=== PATIENT | male | born 1975 | race Caucasian/White ===

== ENCOUNTER 2020-10-04 07:45 | Inpatient (IN) | payer MEDICARE, SELFPAY ==
[2020-10-04] VITALS (33 sets, daily range): BP systolic 126–163; BP diastolic 12–102; PULSE 87–118; RESP 11–24; TEMP 36.1–37; O2SAT 97–100
--- NOTE | ~2020-10-04 | XR_ITS ---
EXAMINATION: XR chest 2V DATE: 10/04/2020 08:18 INDICATION: Midsternal chest pain TECHNIQUE: AP and lateral views of the chest are obtained. COMPARISON: None available FINDINGS: The lungs are free of acute opacities. There is no pleural effusion or pneumothorax. The ca rdiomediastinal silhouette is normal. The visualized bones and soft tissues are unremarkable. IMPRESSION: 1. No acute cardiopulmonary abnormality. Reviewed, dictated and finalized at location B.
--- NOTE | 2020-10-04 07:54 | ECG_ITS ---
Measurements Intervals [place] Rate: 102 P: 66 KS: 166 QRS: 64 QRSD: 154 T: 36 QT: 393 QTc: 513 Interpretive Statements SINUS TACHYCARDIA RIGHT BUNDLE BRANCH BLOCK BASELINE ARTIFACT- AVR, AVL, AVF ABNORMAL ECG Electronically Signed On 10-04-2020 8:30:32 CDT by Kahlil Malone D.O.
[2020-10-04] MEDS: LORazepam INJ (*CRX) 2 MG/ML VIAL 0.5 MG IV PUSH (08:06)
[2020-10-04 08:13] LABS: Basophils Percent Auto 0.2 % (0.2-1.2); Eosinophils Percent Auto 0.1 % (0-4.4); Hematocrit 47.8 % (42.0-52.0); Hemoglobin 16.9 g/dL (14.0-18.0); Immature Granulocyte Absolute 0.07 K/mm3 (0.00-0.031); Immature Granulocyte Percent A 0.5 % (0-0.5); Lymphocytes Absolute Auto 1.19 K/mm3 (0.9-3.2); Lymphocytes Percent Auto 8.6 % (18.3-44.2); Mean Corpuscular HGB Conc 35.4 g/dl (32-36); Mean Corpuscular Volume 87.5 fl (80-100); Mean Platelet Volume 9.5 fl (7.4-10.4); Monocytes Absolute Auto 0.4 K/mm3 (0.1-0.6); Monocytes Percent Auto 2.6 % (2.6-8.5); Neutrophils Absolute Auto 12.1 K/mm3 (1.3-6.7); Platelet Count Result 235 k/mm3 (150-375); Red Blood Count 5.46 M/mm3 (4.6-6.20); Red Cell Distribution Width 12.8 % (11.5-14.5); White Blood Count 13.8 K/mm3 (4.5-10.0)
[2020-10-04 08:23] LABS: Anion Gap 17 mmol/L (8-16); Blood Urea Nitrogen 29 mg/dL (9-20); Calcium 9.8 mg/dL (8.4-10.2); Carbon Dioxide 18 mmol/L (22-30); Chloride 98 mmol/L (98-107); Estimated CRCL calculation 96 ml/min; Estimated Glomerular Filt Rate > 60; Glucose 411 mg/dL (75-110); Potassium 3.7 mmol/L (3.4-5.0); Sodium 133 mmol/L (137-145)
--- NOTE | 2020-10-04 08:43 | ED.CHESTPAIN ---
HPI - Chest Pain General Chief Complaint: Chest Pain Stated Complaint: CP Time Seen by Provider: 10/04/20 07:46 History of Present Illness HPI narrative: Patient is a 44-year-old male who presents ER with chest pain. 11/14 in the center of his chest. Nonradiating. Describes it as an ache. Reports history of SD 10 years ago while in [place]. Reports he did not get a stent. He does not see a cut out stitcher. Reports he had similar pain last week. No nausea/vomiting/shortness of breath/sweating. No aggravating or alleviating factors. No real change in discomfort after receiving nitro by EMS. Patient also reports he is very anxious. Related Data Allergies Allergy/AdvReac Type Severity Reaction Status Date / Time No Known Allergies Allergy Verified 10/04/20 08:01 Review of Systems Review of Systems: All systems reviewed & are unremarkable except as noted in HPI and below Constitutional: Constitutional: Denies chills, Denies fever(s) and Denies weakness ENT: Denies nasal congestion and Denies sore throat Cardiovascular: Cardiovascular: Reports chest pain, Denies rapid heart rate and Denies radiating jaw, neck or arm pain Respiratory: Respiratory: Denies cough, Denies dyspnea and Denies wheezing Gastrointestinal: Gastrointestinal: Denies nausea and Denies vomiting Psychiatric: Psychiatric: Reports anxiety PMFSH Past Medical History Medical History (Updated 10/04/20 @ 11:42 by Mk Cervantes MD) Diabetes Hypertension Surgical History Surgical History (Updated 10/04/20 @ 08:46 by Eladio Weir MD) No pertinent past surgical history Family History Family History (Updated 10/04/20 @ 13:09 by ZAHRA Clemons) Father Melanoma Social History Social History Smoking packs per day: 0.5 Smoking cigarettes per day: 10.0 Years smoked: 30 Smoking pack-years: 15.00 Smoking status: Current every day smoker Tobacco type: cigarettes Substance use type: former substance user, heroin and IV drugs Gender identity (if verbalized by the patient): Male Spiritual care concerns: No Exam Narrative: Exam Narrative: GENERAL: Uncomfortable-appearing, well-nourished, and in no acute distress. HEAD: Normocephalic, atraumatic. EYES: PERRL and EOMI. ENT: Mucous membranes moist. CHEST: Clear to auscultation. No respiratory distress. HEART: Regular rate and rhythm. Normal peripheral pulses. ABDOMEN: Soft, nontender, nondistended. EXTREMITIES: Normal range of motion. No edema. SKIN: Warm, dry, no rash. NEURO: Alert and oriented x3. PSYCH: Normal mood and affect. Course Reevaluation(s) Reevaluation #1: Discussed with Jessica MACIAS. Will speak with Dr. Gray about emergent cath vs heparin infusion. Date: 10/04/20 Time: 08:48 Reevaluation #2: Dr. Gray at bedside. Will take to [facility]. Patient has had aspirin. Will give heparin 4000 units. Date: 10/04/20 Time: 09:03 Vital Signs Vital signs: Vital Signs Pulse Rate 100 10/04/20 07:45 Temperature 98.4 F 10/04/20 16:25 Pulse Rate 89 10/04/20 16:25 Respiratory Rate 15 10/04/20 16:25 Blood Pressure 129/77 10/04/20 16:25 Pulse Oximetry 99 10/04/20 16:25 MDM - Chest Pain Lab Data Result diagrams: 10/04/20 08:06 10/04/20 08:06 Labs: Lab Results 10/04/20 10/04/20 10/04/20 Range/Units 08:06 08:06 09:12 WBC 13.8 H (4.5-10.0) K/mm3 RBC 5.46 (4.6-6.20) M/mm3 Hgb 16.9 (14.0-18.0) g/dL Hct 47.8 (42.0-52.0) % MCV 87.5 (80-100) fl MCH 31.0 (26-34) pg MCHC 35.4 (32-36) g/dl RDW 12.8 (11.5-14.5) % Plt Count 235 (150-375) k/mm3 MPV 9.5 (7.4-10.4) fl Immature Gran % (Auto) 0.5 (0-0.5) % Neut % (Auto) 88.0 H (45.5-73.1) % Lymph % (Auto) 8.6 L (18.3-44.2) % [place] % (Auto) 2.6 (2.6-8.5) % Eos % (Auto) 0.1 (0-4.4) % Baso % (Auto) 0.2 (0.2-1.2) % Lymph # (Auto
[2020-10-04] MEDS: NITROGLYCERIN SL 0.4 MG TABLET SUBLINGUAL (08:46)
[2020-10-04] MEDS: HEPARIN SODIUM 5,000 UNITS/ML VIAL 4000 UNITS IV PUSH (09:04)
[2020-10-04 09:30] LABS: INR 0.9; Prothrombin Time 13.1 Seconds (11.1-14.7)
[2020-10-04 09:31] LABS: Partial Thromboplastin Time 26.6 SECONDS (22.3-36.8)
--- NOTE | 2020-10-04 10:08 | PM.CNCAR ---
Assessment and Plan Additional Plan 44-year-old man with: Acute chest pain which brought him to the hospital emergency room this morning. His electrocardiogram is abnormal as described above. Troponin level is elevated at 1. There is no reciprocal ST segment depression but working diagnosis must be acute ME/acute coronary syndrome in this situation an emergency angiogram is indicated and has been recommended. Despite his psychiatric issues he does appear to understand this conversation and is agreeable. Other medical problems include untreated schizophrenia, untreated diabetes, untreated hypertension. Will bring the patient for emergency coronary angiogram at this time and further recommendations will be forthcoming those results. Robbin Gray MD [facility] History of Present Illness History of Present Illness Consult date/time: 10/04/20 10:08 Consult reason: chest pain Reason For Visit: nstemi Narrative: This is a 44-year-old patient I am seeing in the emergency room as an inpatient consult requested by the ED staff because of chest pain, ECG abnormalities and elevated troponin. Patient has a stated history of previous myocardial infarction but is extremely poor historian the patient states that he lives at home alone and is disabled because of psychiatric issues and began to experience chest pain at this morning he describes it as a dull to sometimes burning like discomfort in the epigastrium and radiated into the upper substernal region. The discomfort was moderate at times more moderate to severe in intensity. He tried to get some relief at home by drinking coffee intake shower which was of no benefit and so eventually he came to the hospital for evaluation. In the emergency room he was found to be a agitated reporting symptoms given rather difficult history of this. His electrocardiogram demonstrates a sinus mechanism with right bundle branch block and some anterior precordial ST elevation but no reciprocal depression. Her troponin level was measured along with the lab data and was elevated at 1 and I was then summoned to the emergency room to see the patient. In the emergency room again he is still reporting mild to moderate chest discomfort he is a very difficult historian to be focused on the issues at hand. He is responsive but giving answers that are not relevant to the questions that are asked. I did question him about the history of previous myocardial infarction he states he was hospitalized in [place] about 10 years ago and was hospitalized because of social reasons and psychiatric reasons. He can't remember having any sort of cardiac evaluation. I did receive any history that a lobby to conclude that he infected had an infarction. In any event in this situation I am seeing the patient in consultation. He does have schizophrenia diabetes hypertension and states he takes not done of his medication for any of this. He has a previous history of illicit drug use with heroin apparently states has been free of that for a number of years. Not sure of her urine drug screen was done in the emergency room. In this situation I recommended to the patient up bringing him for emergency coronary angiogram he seems to understand this and is agreeable. Review of Systems Review of Systems: ROS unobtainable: Yes unobtainable due to mental status [facility] Past Medical History Medical History (Updated 10/04/20 @ 09:17 by Sofia Jimenez) Diabetes Hypertension Surgical History Surgical History (Updated 10/04/20 @ 08:46 by Eladio Weir MD) No pertinent past surgical history Social History Social History (Updated 10/04/20 @ 08:47 by Eladio Weir MD) Substance use type: former substance user, heroin and IV drugs Meds Home Medications and Allergies Allergies Allergy/AdvReac Type Severity Reaction Status Date / Time No Known Allergies Allergy Verified 10/04/20 08:01 Vital Signs Vital Signs - 24 h
--- NOTE | 2020-10-04 10:14 | WPDCARDPROC ---
Cardiac Cath Procedure Note Date of procedure:: 10/04/20 Performing physician:: Robbin Gray MD Indication:: chest pain/acute coronary syndrome Brief clinical history:: this is a 44-year-old man who was a very difficult historian because of psychiatric issues. He enters the hospital emergency room this morning with chest pain and has sinus rhythm with right bundle branch block along with some precordial ST elevation. Troponin level was 1.0. In this setting and emergency angiogram has been recommended. Procedure Procedure performed:: Emergency coronary angiography left ventriculography Sedation/Medication given:: fentanyl 50 mg Versed 2 mg case start time 9:39 a.m. case end time 10:01 a.m. sedation provided by Mary Napoles RN, trained observer Access site:: right femoral artery Estimated blood loss:: 20 cc Procedure note:: patient was brought to the cardiac catheterization lab in the emergency setting described above. The right femoral triangle was prepared and draped in the usual sterile fashion. Because of his agitation / psychiatric issues soft restraints were put on the arms. Following this the patient received 1% lidocaine infiltrated locally in the right groin. The femoral artery was punctured and a 6 [place] vascular sheath was placed. After this I used a 5 [place] JR4 catheter to engage inject the right coronary artery in orthogonal projections. After this I used a 5 [place] FL4 catheter to engage and inject the left coronary artery in multiple projections. After this a 5 [place] angled pigtail was used to measure left-sided hemodynamics and inject the left ventriculogram in the ARELLANO projection. Following this the cineangiograms were reviewed in detail and the case was terminated. An angiogram was done of the femoral artery through the sheath after which I decided to remove the sheath with direct manual compression. Procedure was well tolerated and uncomplicated he left the cardiac cath lab technologist with no evidence of a groin hematoma. Findings:: Hemodynamics: Central aortic pressure is 140/82 left ventricle 140/0 end-diastolic pressure 16 there is no gradient on pullback across the aortic valve. Left ventricle: The LV is normal in size there is a region of akinesis in the mid anterolateral wall with normal contractility elsewhere the global ejection fraction I would visually estimate to be 45-50%. The left main coronary artery is widely patent the left anterior descending is a large caliber artery extending down to around the apex. There is a modest area of atherosclerosis in the LAD in the vicinity of the major diagonal branch. This is angiographically very mild representing about 40-50% stenosis at most. There was NATO 3 flow in the LAD. The circumflex is a moderate to large caliber artery that is codominant to the posterior circulation giving rise to several marginal branches as well as a left PDA. The circumflex is smooth and angiographically normal. There is a very small ramus intermedius artery which after about 15 mm of length appears to be 100% occluded. This appears to be a very small artery about 1.5 mm in diameter. The right coronary artery is moderate to large in caliber bifurcates early and is also codominant. The right coronary artery is smooth and angiographically free of disease. Conclusion:: 1. Coronary artery disease presenting with chest pain, precordial ST-elevation and angiographically with 100% occlusion of a very small ramus intermedius branch of the left coronary artery. This vessel is likely the culprit of the presentation and is far too small to be considered a reasonable target for PCI. 2. Mild mid LAD disease as described above which is not flow-limiting 3. codominant circulation 4. area of mid anterolateral akinesia described above corresponding with the occlusion of the small ramus branch. Overall very mildly reduced LV systolic function. Medical therapy in this situ
[2020-10-04 10:20] LABS: Activated Clotting Time 136 sec (74-137)
[2020-10-04 11:30] LABS: Glucose Point of Care 335 mg/dl (65-105)
--- NOTE | 2020-10-04 11:38 | PM.IMHP ---
H&P: HPI History of Present Illness Date/Time: 10/04/20 11:38 Chief Complaint: Chest pain Narrative: 44 years old male with history of hypertension, diabetes mellitus, questionable history of CAD in the past presented in the emergency room with complaints of having midsternal chest pain since morning felt like pressure and chest relieved slightly by nitroglycerin. According to the patient he had similar episode 10 years ago had a cardiac catheterization but no stent was placed. He is very anxious and worried about this chest pain. Patient had shortness of breath. Patient denies any fever chills. Patient denies any nausea vomiting or abdominal pain. Patient was seen by cardiology and taken to cardiac catheterization from emergency room. Review of Systems Review of Systems: All systems reviewed & are unremarkable except as noted in HPI and below ( the history and physical exam.) [facility] Past Medical History Medical History (Updated 10/04/20 @ 11:42 by Mk Cervantes MD) Diabetes Hypertension Surgical History Surgical History (Updated 10/04/20 @ 08:46 by Eladio Weir MD) No pertinent past surgical history Social History Social History Substance use type: former substance user, heroin and IV drugs Meds Home Medications and Allergies Allergies Allergy/AdvReac Type Severity Reaction Status Date / Time No Known Allergies Allergy Verified 10/04/20 08:01 Vital Signs Vital Signs - 24 hr 10/04/20 07:45 10/04/20 07:47 10/04/20 07:58 Temperature 36.1 C L Pulse Rate 100 100 106 H Respiratory Rate 14 14 Blood Pressure 163/90 H 163/90 H Pulse Oximetry 100 100 10/04/20 08:00 10/04/20 08:02 10/04/20 08:46 Temperature Pulse Rate 105 H 100 95 Respiratory Rate 24 H 15 19 Blood Pressure 134/101 H 140/89 Pulse Oximetry 100 100 100 10/04/20 08:52 10/04/20 08:58 10/04/20 10:49 Temperature 36.2 C L Pulse Rate 87 104 H 101 H Respiratory Rate 20 21 H 14 Blood Pressure 151/102 H 153/97 H 126/95 H Pulse Oximetry 100 100 10/04/20 10:50 10/04/20 10:55 10/04/20 11:00 Temperature Pulse Rate 101 H 101 H 112 H Respiratory Rate 16 17 14 Blood Pressure 141/85 H 141/89 H 137/91 H Pulse Oximetry 100 100 100 10/04/20 11:05 10/04/20 11:10 10/04/20 11:15 Temperature Pulse Rate 109 H 111 H 105 H Respiratory Rate 13 20 17 Blood Pressure 146/99 H 142/93 H 144/98 H Pulse Oximetry 100 100 100 10/04/20 11:20 10/04/20 11:25 Temperature Pulse Rate 113 H 112 H Respiratory Rate 24 H 17 Blood Pressure 139/93 H 143/93 H Pulse Oximetry 100 100 Exam Narrative: Exam Narrative: Exam Narrative: GENERAL: Uncomfortable-appearing, well-nourished, and in no acute distress. HEAD: Normocephalic, atraumatic. EYES: PERRL and EOMI. ENT: Mucous membranes moist. CHEST: Clear to auscultation. No respiratory distress. HEART: Regular rate and rhythm. Normal peripheral pulses. ABDOMEN: Soft, nontender, nondistended. EXTREMITIES: Normal range of motion. No edema. SKIN: Warm, dry, no rash. NEURO: Alert and oriented x3. PSYCH: Normal mood and affect. H&P: Results Labs Labs: Short CBC 10/04/20 Range/Units 08:06 WBC 13.8 H (4.5-10.0) K/mm3 Hgb 16.9 (14.0-18.0) g/dL Hct 47.8 (42.0-52.0) % Plt Count 235 (150-375) k/mm3 BMP 10/04/20 08:06 Sodium 133 L Potassium 3.7 Chloride 98 Carbon Dioxide 18 L BUN 29 H Creatinine 1.00 Glucose 411 H Calcium 9.8 Cardiac Enzymes 10/04/20 Range/Units 08:06 Troponin I 1.010 H* (0.000-0.034) ng/mL Assessment and Plan Assessment and plan (1) Non-ST elevation [place] (NSTEMI): Code(s): I21.4 - Non-ST elevation (NSTEMI) myocardial infarction Status: Acute Assessment and Plan: cardiology consult and possible cardiac (2) Hypertension: Code(s): I10 - Essential (primary) hypertension Status: Inactive Assessment and Plan:
[2020-10-04] MEDS: ACETAMINOPHEN 325 MG TABLET 650 MG PO (12:19)
--- NOTE | 2020-10-04 12:23 | SUR.PHASEII ---
Patient has been lifting head off of pillow and turning on his side despite education by RN. RN notified Dr. Gray of his 10/[address] Gray recommended tylenol and nitrospray for pain. RN administered tylenol. RN waiting for pharmacy to tube nitrospray
--- NOTE | 2020-10-04 13:13 | ADMGEN ---
This patient, Agusto Sal, was admitted to IMU Room 207-01 at 1250. Patient/family oriented to hospital policies and general routines including ID bracelet, bed and alarms, visiting hours, pain management, procedures, bathroom and other care routines, personal items, smoking policy, room service/diet, and visiting hours. Information on how to activate the Rapid Response Team has been discussed. Patient/Family are encouraged to report perceived risks to care and to ask questions if they do not understand what they are told or what they should do.
[2020-10-04] MEDS: SODIUM CHLORIDE 0.9% IV 1,000 ML 125 ML IV CONT (13:18)
[2020-10-04] MEDS: NITROGLYCERIN OINTMENT 1 INCH DOSE 0.5 INCH TRANSDERM ×2 (13:20→16:57)
[2020-10-04 16:53] LABS: Glucose Point of Care 227 mg/dl (65-105)
[2020-10-04] MEDS: INSULIN ASPART (*BKC) 100 UNITS/ML SUB-Q (16:58)
[2020-10-04 21:52] LABS: Glucose Point of Care 295 mg/dl (65-105)
[2020-10-05] VITALS (11 sets, daily range): BP systolic 119–150; BP diastolic 80–98; PULSE 74–100; RESP 14–20; TEMP 35.7–36.4; O2SAT 95–100
[2020-10-05 05:05] LABS: Hematocrit 46.4 % (42.0-52.0); Mean Corpuscular HGB Conc 34.5 g/dl (32-36); Mean Corpuscular Hemoglobin 30.8 pg (26-34); Mean Corpuscular Volume 89.2 fl (80-100); Mean Platelet Volume 9.7 fl (7.4-10.4); Platelet Count Result 222 k/mm3 (150-375); Red Cell Distribution Width 13.3 % (11.5-14.5); White Blood Count 12.1 K/mm3 (4.5-10.0)
[2020-10-05 05:29] LABS: Anion Gap 10 mmol/L (8-16); Blood Urea Nitrogen 16 mg/dL (9-20); Carbon Dioxide 22 mmol/L (22-30); Chloride 106 mmol/L (98-107); Estimated CRCL calculation 134 ml/min; Estimated Glomerular Filt Rate > 60; Glucose 201 mg/dL (75-110); Potassium 3.9 mmol/L (3.4-5.0); Sodium 138 mmol/L (137-145)
[2020-10-05 05:30] LABS: Hemoglobin A1C 11.1 % (<5.7)
[2020-10-05] MEDS: glipiZIDE 5 MG TABLET PO (05:51)
[2020-10-05 08:46] LABS: Glucose Point of Care 213 mg/dl (65-105)
[2020-10-05] MEDS: ROSUVASTATIN 10 MG TABLET PO (08:49)
[2020-10-05] MEDS: lisinopriL 10 MG TABLET PO (08:49)
[2020-10-05] MEDS: METOPROLOL SUCCINATE EXT REL 25 MG TABCR PO (08:49)
[2020-10-05] MEDS: ASPIRIN 81 MG ENTERIC TABLET PO (08:50)
[2020-10-05] MEDS: INSULIN ASPART (*BKC) 100 UNITS/ML SUB-Q (08:50)
--- NOTE | 2020-10-05 11:16 | PC.NURSE ---
Cardiopulmonary Rehab Services flyer was given to patient in cardiac admission folder.
--- NOTE | 2020-10-05 11:44 | PCNSR ---
On 10/05/20, the student, Loyda Romero, provided care and completed [facility] documentation on this patient. I have reviewed the student's documentation and agree with the findings.
[2020-10-05 12:23] LABS: Glucose Point of Care 181 mg/dl (65-105)
[2020-10-05] MEDS: NITROGLYCERIN OINTMENT 1 INCH DOSE 0.5 INCH TRANSDERM (13:00)
--- NOTE | 2020-10-05 14:23 | PM.PNCARD ---
Progress Note: A&P Assessment and Plan (1) Non-ST elevation [place] (NSTEMI): Code(s): I21.4 - Non-ST elevation (NSTEMI) myocardial infarction Status: Acute Assessment and Plan: Presented to the emergency department with chest pain. EKG with changes consistent with ischemia and initial troponon was 1.0. Therefore, he was taken to the cardiac catheterization lab for coronary angiogram which revealed a 100% occluded ramus intermedius as well as 40- 50% stenosis of the LAD. The ramus intermedius being a very small vessel was not intervened upon and medical therapy was recommended. Patient has been initiated on aspirin, lisinopril, metoprolol, rosuvastatin. I talked with the patient at length about the importance of adhering to his medical regimen as well as lifestyle modifications such as heart healthy diet, exercise, avoiding nicotine, limiting alcohol intake. He verbalized understanding of everything that we discussed. He is feeling well today and is not having any further chest pain. From a cardiac standpoint, he is stable for discharge. I will see him for follow-up in the office in 2-3 weeks. I provided him with our office contact information in the event that he has questions or problems in the interim. (2) CAD (coronary artery disease): Code(s): I25.10 - Atherosclerotic heart disease of [place] coronary artery without angina pectoris Status: Acute Assessment and Plan: See above. Subjective Date/time seen: 10/05/20 14:23 Cardiology follow-up for chest pain Their service 10/05/2020: Patient states he is feeling 100% better today. He denies any chest pain, shortness of breath. He is complaining of some back pain from sleeping on the hospital bed. He has lots of questions about his coronary disease - I talked with him at great length about medication adherence, lifestyle modifications. He verbalized understanding of everything we discussed. Review of Systems Review of Systems: All systems reviewed & are unremarkable except as noted in HPI and below Constitutional: Constitutional: Denies fatigue and Denies weakness Eyes: Eyes: Denies change in vision ENT: Reports Normal hearing present, Denies nasal congestion and Denies nasal discharge Cardiovascular: Cardiovascular: Denies chest pain, Denies pedal edema, Denies leg edema and Denies palpitations Respiratory: Respiratory: Denies dyspnea and Denies dyspnea on exertion Gastrointestinal: Gastrointestinal: Denies constipation, Denies nausea and Denies vomiting Genitourinary: Genitourinary: Denies urinary hesitancy and Denies urinary urgency Musculoskeletal: Musculoskeletal: Reports back pain and Denies myalgias Integumentary/Breasts: Skin/Breast: Reports system reviewed and no additional complaints, except as docu Neurologic: Denies headache(s) Psychiatric: Psychiatric: Reports anxiety Endocrine: Endocrine: Denies fatigue and Denies palpitations Hematologic/Lymphatic: Hematologic/Lymphatic: Denies easy bleeding and Denies easy bruising Allergic/Immunologic: Allergic/Immunologic: Denies GI upset with certain foods Exam Const: General: comfortable and no acute distress HENMT: Head: normal to inspection Mouth: Yes moist mucous membranes Eyes: General: appearance normal, both eyes and all related structures Sclera: sclerae normal Pupils: Equal, round and reactive pupils present Neck: Neck: supple and no JVD Thyroid: thyroid normal Resp: Effort & Inspection: normal respiratory effort Auscultation: clear to auscultation bilaterally Cardio: Rate: regular rate Rhythm: regular rhythm Heart sounds: no murmurs GI: GI Palp: Yes Soft to palpation Auscultation: normal bowel sounds Skin: General skin exam: normal color Other: ) left heart catheterization insertion site free from bleeding, hematoma, swelling, pain. Neuro: Cranial nerves: Yes Equal, round and reactive pupils present Cognition (Neuro): abnormal cog
--- NOTE | 2020-10-05 15:25 | PM.DS ---
DS: Admitting Diagnosis Admitting Diagnosis Admitting Diagnosis: 1) Non-ST elevation [place] (NSTEMI): Code(s): I21.4 - Non-ST elevation (NSTEMI) myocardial infarction Status: Acute Assessment and Plan: cardiology consult and possible cardiac (2) Hypertension: Code(s): I10 - Essential (primary) hypertension Status: Inactive Assessment and Plan: Continue home medication (3) Diabetes: Code(s): E11.9 - Type 2 diabetes mellitus without complications Status: Inactive DS: Discharge Diagnosis Discharge Diagnosis (1) Non-ST elevation [place] (NSTEMI): Code(s): I21.4 - Non-ST elevation (NSTEMI) myocardial infarction Status: Acute Assessment and Plan: cardiology consult and possible cardiac (2) Hypertension: Code(s): I10 - Essential (primary) hypertension Status: Inactive Assessment and Plan: Continue home medication (3) Diabetes: Code(s): E11.9 - Type 2 diabetes mellitus without complications Status: Inactive Assessment and Plan: Diabetic teaching sliding scale insulin and dietitian consult DS: Summary Hospital Course Reason for hospitalization: CHEST PAIN Hospital Course: 44 years old male with history of hypertension, diabetes mellitus, questionable history of CAD in the past presented in the emergency room with complaints of having midsternal chest pain since morning felt like pressure and chest relieved slightly by nitroglycerin. According to the patient he had similar episode 10 years ago had a cardiac catheterization but no stent was placed. He is very anxious and worried about this chest pain. Patient had shortness of breath. Patient denies any fever chills. Patient denies any nausea vomiting or abdominal pain. Patient was seen by cardiology and taken to cardiac catheterization from emergency room. POST CATHETERIZATION. PATIENT DID WELL AND WAS DISCHARGED HOME. CONSULTS OBTAINED: CARDIOLOGY PROCEDURES: CARDIAC CATHETERIZATION Cardiac Cath Procedure Note Date of procedure:: 10/04/20 Performing physician:: Robbin Gray MD Indication:: chest pain/acute coronary syndrome Brief clinical history:: this is a 44-year-old man who was a very difficult historian because of psychiatric issues. He enters the hospital emergency room this morning with chest pain and has sinus rhythm with right bundle branch block along with some precordial ST elevation. Troponin level was 1.0. In this setting and emergency angiogram has been recommended. Procedure Procedure performed:: Emergency coronary angiography left ventriculography Sedation/Medication given:: fentanyl 50 mg Versed 2 mg case start time 9:39 a.m. case end time 10:01 a.m. sedation provided by Mary Napoles RN, trained observer Access site:: right femoral artery Estimated blood loss:: 20 cc Procedure note:: patient was brought to the cardiac catheterization lab in the emergency setting described above. The right femoral triangle was prepared and draped in the usual sterile fashion. Because of his agitation / psychiatric issues soft restraints were put on the arms. Following this the patient received 1% lidocaine infiltrated locally in the right groin. The femoral artery was punctured and a 6 Cypriot vascular sheath was placed. After this I used a 5 Cypriot JR4 catheter to engage inject the right coronary artery in orthogonal projections. After this I used a 5 Cypriot FL4 catheter to engage and inject the left coronary artery in multiple projections. After this a 5 Cypriot angled pigtail was used to measure left-sided hemodynamics and inject the left ventriculogram in the ARELLANO projection. Following this the cineangiograms were reviewed in detail and the case was terminated. An angiogram was done of the femoral artery through the sheath after which I decided to remove the sheath with direct manual compression. Procedure was well tolerated and uncomplica
== END 2020-10-05 16:27 | disposition home or self-care (01) | DRG 282 ==
LOC: ANHED 09:17 → ANHIMU 13:26
PROVIDERS: Specialist; Admitting Provider Internal Medicine; Emergency Provider Emergency Medicine; Visit Provider Internal Medicine
PROC: 4A023N7 Measurement of Cardiac Sampling and Pressure, Left Heart, Percutaneous Approach (ICD-10-PCS; CPT 93452; principal; 2020-10-04 09:30)
DX: I21.4 Non-ST elevation (NSTEMI) myocardial infarction (principal); I10 Essential (primary) hypertension; E11.9 Type 2 diabetes mellitus without complications; I25.10 Atherosclerotic heart disease of native coronary artery without angina pectoris; F20.9 Schizophrenia, unspecified; F17.210 Nicotine dependence, cigarettes, uncomplicated; I25.2 Old myocardial infarction
CPT/HCPCS: 36415; 71046; 80048; 82948; 83036; 84484; 85025; 85027; 85610; 85730; 93005; 93458; 96374; 96375; 99291; A9270; C1887; C1894; J0461; J1644; J1815; J2060; J2250; J3010; J7030

== ENCOUNTER 2021-03-10 06:00 | Emergency (ER) | payer MEDICARE, SELFPAY ==
[2021-03-10 06:20] VITALS: BP 157/104; PULSE 118; RESP 16; TEMP 36.9; O2SAT 98
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
[2021-03-10 07:59] LABS: Basophils Absolute Auto 0.1 K/mm3 (0.0-0.1); Basophils Percent Auto 0.5 % (0.2-1.2); Eosinophils Absolute Auto 0.1 K/mm3 (0-0.3); Hematocrit 48.4 % (42.0-52.0); Hemoglobin 17.2 g/dL (14.0-18.0); Immature Granulocyte Absolute 0.04 K/mm3 (0.00-0.031); Immature Granulocyte Percent A 0.4 % (0-0.5); Lymphocytes Absolute Auto 2.35 K/mm3 (0.9-3.2); Lymphocytes Percent Auto 22.7 % (18.3-44.2); Mean Corpuscular HGB Conc 35.5 g/dl (32-36); Mean Platelet Volume 8.5 fl (7.4-10.4); Monocytes Absolute Auto 0.8 K/mm3 (0.1-0.6); Monocytes Percent Auto 7.2 % (2.6-8.5); Neutrophils Absolute Auto 7.1 K/mm3 (1.3-6.7); Neutrophils Percent Auto 68.2 % (45.5-73.1); Platelet Count Result 241 k/mm3 (150-375); Red Blood Count 5.38 M/mm3 (4.6-6.20); Red Cell Distribution Width 13.6 % (11.5-14.5); White Blood Count 10.4 K/mm3 (4.5-10.0)
[2021-03-10 08:10] LABS: Add Urine Microscopic? YES; Appearance Urine Clear (Clear); Bilirubin Urine Negative (Negative); Blood Urine 1+ (Negative); Color Urine Yellow (Yellow); Glucose Urine UA 3+ mg/dL (Negative); Hyaline Casts Urine 20-29 /lpf; Ketones Urine Negative (Negative); Leukocyte Esterase Ur Negative LEU/UL (Negative); Mucus Urine Rare /lpf; Nitrate Urine Negative (Negative); Protein Urine 1+ mg/dL (Negative); RBC Urine 0-2 /hpf (0-2); Specific Grav Ur 1.013 (1.001-1.035); Squamous Epithelial Cell Urine Rare /hpf (Few); Urobilinogen Urine Negative mg/dL (<2.0); WBC Urine 0-3 /hpf
[2021-03-10 08:10] LABS: Ethanol 187 mg/dL (<10)
[2021-03-10 08:13] LABS: Alanine Aminotransferase 35 U/L (4-50); Alkaline Phosphatase 146 U/L (38-126); Anion Gap 14 mmol/L (8-16); Aspartate Amino Transferase 34 U/L (17-59); Bilirubin,Total 0.4 mg/dL (0.2-1.3); Blood Urea Nitrogen 11 mg/dL (9-20); Calcium 9.5 mg/dL (8.4-10.2); Carbon Dioxide 21 mmol/L (22-30); Chloride 104 mmol/L (98-107); Estimated CRCL calculation 148 ml/min; Estimated Glomerular Filt Rate > 60; Glucose 194 mg/dL (65-110); Potassium 3.9 mmol/L (3.4-5.0); Sodium 139 mmol/L (137-145)
[2021-03-10 08:25] LABS: Amphetamine Screen Urine Negative (Negative); Barbiturate Screen Urine Negative (Negative); Benzodiazepines Screen Urine Negative (Negative); Cannabinoid Screen Urine Positive (Negative); Cocaine Screen Urine Negative (Negative); Methadone Screen Urine Negative (Negative); Opiate Screen Urine Negative (Negative); Phencyclidine Screen Urine Negative (Negative)
[2021-03-10 13:12] LABS: Ethanol 57 mg/dL (<10)
[2021-03-10 15:43] LABS: Ethanol < 10 mg/dL (<10)
[2021-03-10 16:52] VITALS: BP 143/89; PULSE 104; RESP 16; TEMP 36.2; O2SAT 99
== END 2021-03-11 01:45 | disposition home or self-care (01) ==
PROVIDERS: Emergency Medicine; Emergency Provider Emergency Medicine
DX: F10.129 Alcohol abuse with intoxication, unspecified (principal); F10.14 Alcohol abuse with alcohol-induced mood disorder; R45.851 Suicidal ideations; Y90.6 Blood alcohol level of 120-199 mg/100 ml; I25.10 Atherosclerotic heart disease of native coronary artery without angina pectoris; E11.9 Type 2 diabetes mellitus without complications; I10 Essential (primary) hypertension; I25.2 Old myocardial infarction; Z79.82 Long term (current) use of aspirin; Z79.84 Long term (current) use of oral hypoglycemic drugs; Z79.899 Other long term (current) drug therapy
CPT/HCPCS: 36415; 80053; 80307; 81001; 84443; 85025; 99284

== ENCOUNTER 2023-03-18 14:54 | Emergency (ER) | payer MEDICARE, SELFPAY ==
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
[2023-03-18 15:28] VITALS: BP 146/90; PULSE 120; RESP 20; TEMP 36.4; O2SAT 100
[2023-03-18] MEDS: OLANZapine 10 MG, WATER, STERILE FOR INJECTION 2.1 ML IM ×2 (15:41→20:24)
--- NOTE | 2023-03-18 15:42 | PC.NURSE ---
pt yelling obscene words in quiroz medication given per ERP order and pt tolerated injection, unable to scan zyprexa due to pt being in room 15
[2023-03-18 16:13] LABS: Basophils Percent Auto 0.5 % (0.2-1.2); Eosinophils Absolute Auto 0.1 K/mm3 (0-0.3); Hemoglobin 16.5 g/dL (14.0-18.0); Immature Granulocyte Absolute 0.05 K/mm3 (0.00-0.031); Immature Granulocyte Percent A 0.9 % (0-0.5); Lymphocytes Absolute Auto 2.17 K/mm3 (0.9-3.2); Lymphocytes Percent Auto 37.3 % (18.3-44.2); Mean Corpuscular HGB Conc 33.7 g/dl (32-36); Mean Corpuscular Hemoglobin 30.8 pg (26-34); Mean Corpuscular Volume 91.4 fl (80-100); Mean Platelet Volume 9.2 fl (7.4-10.4); Monocytes Absolute Auto 0.4 K/mm3 (0.1-0.6); Neutrophils Absolute Auto 3.1 K/mm3 (1.3-6.7); Neutrophils Percent Auto 53.3 % (45.5-73.1); Platelet Count Result 302 k/mm3 (150-375); Red Blood Count 5.36 M/mm3 (4.6-6.20); Red Cell Distribution Width 14.7 % (11.5-14.5); White Blood Count 5.8 K/mm3 (4.5-10.0)
[2023-03-18 16:16] LABS: Appearance Urine Clear (Clear); Bilirubin Urine Negative (Negative); Blood Urine Negative (Negative); Color Urine Yellow (Yellow); Glucose Urine UA 2+ mg/dL (Negative); Ketones Urine Negative (Negative); Leukocyte Esterase Ur Negative LEU/UL (Negative); Nitrate Urine Negative (Negative); Protein Urine Negative (Negative); Specific Grav Ur 1.008 (1.001-1.035); Urobilinogen Urine 0.2 mg/dL (<2.0)
[2023-03-18 16:21] LABS: Add Urine Microscopic? NO
[2023-03-18 16:22] LABS: Acetaminophen < 10 ug/mL (10-30); Ethanol 218 mg/dL (<10); Salicylate < 1.0 mg/dL (2-20)
[2023-03-18 16:24] LABS: Alanine Aminotransferase 24 U/L (6-50); Albumin Level 4.6 g/dL (3.5-5.1); Alkaline Phosphatase 145 U/L (38-126); Anion Gap 14 mmol/L (8-16); Aspartate Amino Transferase 26 U/L (17-59); Bilirubin,Total 0.3 mg/dL (0.2-1.3); Blood Urea Nitrogen 12 mg/dL (9-20); Carbon Dioxide 18 mmol/L (22-30); Chloride 109 mmol/L (98-107); Estimated CRCL calculation 111 ml/min; Estimated Glomerular Filt Rate > 60; Glucose 288 mg/dL (65-110); Potassium 4.3 mmol/L (3.4-5.0); Sodium 141 mmol/L (137-145)
[2023-03-18 16:33] LABS: Amphetamine Screen Urine Negative (Negative); Barbiturate Screen Urine Negative (Negative); Benzodiazepines Screen Urine Negative (Negative); Cannabinoid Screen Urine Positive (Negative); Cocaine Screen Urine Negative (Negative); Methadone Screen Urine Negative (Negative); Opiate Screen Urine Negative (Negative); Phencyclidine Screen Urine Negative (Negative)
[2023-03-18 16:57] LABS: Influenza A QL RT-PCR Negative (Negative); Influenza B QL RT-PCR Negative (Negative); RSV RNA, RT-PCR Negative (Negative); SARS-CoV-2 RNA PCR Negative (Negative)
[2023-03-18 20:32] LABS: Glucose Point of Care 119 mg/dl (65-105)
[2023-03-18] MEDS: diphenhydrAMINE HCl INJ 50 MG/ML VIAL IM (21:58)
[2023-03-18] MEDS: LORazepam INJ (*CRX) 2 MG/ML VIAL IM (21:58)
[2023-03-18] MEDS: HALOPERIDOL LACTATE 5 MG/ML VIAL IM (21:58)
[2023-03-19 01:45] LABS: Ethanol < 10 mg/dL (<10)
[2023-03-19 06:30] VITALS: BP 140/91; PULSE 85; RESP 17; O2SAT 97
== END 2023-03-19 07:00 | disposition home or self-care (01) ==
PROVIDERS: Emergency Medicine; Emergency Provider Emergency Medicine
DX: T14.91XA Suicide attempt, initial encounter (principal); F10.920 Alcohol use, unspecified with intoxication, uncomplicated; F91.8 Other conduct disorders; Z11.52 Encounter for screening for COVID-19; F17.210 Nicotine dependence, cigarettes, uncomplicated; I10 Essential (primary) hypertension; I25.2 Old myocardial infarction; E11.9 Type 2 diabetes mellitus without complications
CPT/HCPCS: 36415; 80053; 80307; 81003; 82948; 84443; 85025; 87637; 96372; 99284; J1200; J1630; J2060; J2359